=== PATIENT | female | born 1945 | race Caucasian/White ===

== ENCOUNTER 2016-02-13 07:56 | Inpatient (IN) | payer OTHER ==
[2016-02-13] VITALS (16 sets, daily range): BP systolic 107–156; BP diastolic 65–86; PULSE 97–116; TEMP 36.4–37; O2SAT 94–99; Ht 162.6 cm; Wt 66.0 kg
[~2016-02-13] VITALS: Ht 162.6 cm; Wt 66.0 kg
[~2016-02-13 07:56] MED LIST: ADVIN25/60 INH; ALBUAER19 INH; ASPI81TA28 PO; ATOR10TA88 PO; CALC600T9 PO; GLC500 PO; GLUCTAB7 PO; MONT1TAB3 PO; NAPR375T3 PO; OMEP40CA41 PO
[2016-02-13 08:46] LABS: BASO % 0.3 %; BASO ABS # 0.03 K/uL (0-0.2); COMPLETE YES; EOS % 0.9 %; HEMATOCRIT 42.7 % (37-47); IG% 0.5 %; LYMPH % 19.8 %; LYMPH ABS # 2.08 K/uL (1.2-3.4); MEAN CELL VOLUME 87.9 fL (80-100); MEAN CORPUSCULAR HEMOGLOBIN 29.2 pg (25-34); MEAN CORPUSCULAR HGB CONC 33.3 g/dl (32-36); MEAN PLATELET VOLUME 11.8 fL (7.4-10.4); MONO % 5.1 %; NEUT % 73.4 %; PLATELET COUNT 191 K/uL (130-400); RED BLOOD COUNT 4.86 M/uL (4.2-5.4); WHITE BLOOD COUNT 10.53 K/uL (4.8-10.8)
[2016-02-13 08:55] LABS: BUN/CREATININE RATIO 12.4 (10-20); CALCIUM 9.5 mg/dl (8.5-10.1); CREATININE 0.86 mg/dl (0.60-1.20); POTASSIUM 4.1 mmol/L (3.5-5.1)
[2016-02-13 08:58] LABS: INR 0.9 (0.9-1.1); PARTIAL THROMBOPLASTIN RATIO 0.9; PROTHROMBIN TIME (PATIENT) 9.7 SECONDS (9.0-12.0)
--- NOTE | 2016-02-13 08:59 | DIAGNOSTIC IMAGING REPORT ---
CHEST 2 VIEWS ROUTINE HISTORY: Left-sided chest pain. COMPARISON: None. FINDINGS: The heart is normal in size. No pleural effusions. No pneumothorax. No focal lung consolidations to suggest pneumonia. No evidence for pulmonary edema. A 7 mm nodular density within the left lower lobe is consistent with a nipple shadow. Small linear density within the right lung apex is likely due to the overlapping ribs. No rib fractures. The lungs are mildly hyperexpanded. Prior cholecystectomy. IMPRESSION: 1. No acute process within the chest. 2. The lungs are mildly hyperexpanded. Electronically signed by: Roshan Anthony M.D. 02/13/2016 8:57 AM Dictated Date/Time: 02/13/2016 8:54 AM
[2016-02-13] MEDS ORDERED: MULT-506 PO (09:00)
[2016-02-13] MEDS ORDERED: MISCTAB78 PO (09:00)
[2016-02-13 09:06] LABS: CKMB/CK RATIO 1.7 (0-3.0)
--- NOTE | 2016-02-13 09:32 | EMERGENCY ROOM VISIT NOTE ---
ED Visit Note First contact with patient: 08:05 70-year-old female with chest pain was fully evaluated by Janusz Reyes PA-C. Please see his note. I also independently evaluated the patient. The patient is elevation of her troponin. The patient will require further evaluation in the hospital. The hospitalist was contacted. The patient has already received aspirin and nitroglycerin.
[2016-02-13] MEDS ORDERED: NITROGLYCERIN OINT 2% 1GM PACKET EXT ONE (10:15)
[2016-02-13] MEDS ORDERED: GLUCOSE 40% GEL 15 GM TUBE PO PRN (11:00)
[2016-02-13] MEDS ORDERED: ACETAMINOPHEN 325 MG TAB PO PRN (11:00)
[2016-02-13] MEDS ORDERED: GLUCAGON FOR INJ 1 MG VIAL SQ PRN (11:00)
[2016-02-13] MEDS ORDERED: DEXTROSE 50% 50 ML SYR IV PRN (11:00)
[2016-02-13] MEDS ORDERED: NITROGLYCERIN 0.4 MG SL PER TAB CHARGE SL PRN (11:00)
[2016-02-13] MEDS ORDERED: ONDANSETRON INJ 2 MG/ML 2 ML VIAL IV PRN ×2 (11:00→15:45)
[2016-02-13] MEDS ORDERED: ALBUTEROL HFA 8 GM INHALER INH PRN (11:00)
[2016-02-13] MEDS ORDERED: GLUCOSE 10 TABS/TUBE PO PRN (11:00)
[2016-02-13] MEDS ORDERED: CALC600T37 PO (11:06)
[2016-02-13] MEDS ORDERED: CHOL1000 PO (11:06)
--- NOTE | 2016-02-13 11:26 | History and Physical ---
History & Physical Date & Time of Service: Feb 13, 2016 at 11:07 Chief Complaint: Chest Pain Primary Care Physician: Anthony Griffiths M.D.(JORJE) History of Present Illness Source: patient This is a 70 y/o female with PMHx of moderate COPD, well-controlled DM 2, Dyslipidemia and other problems as outlined below who presents to the ED c/o chest pain that began early this morning. Pt reports that she woke up around 0500 with chest pain that she describes as "heavy" 5/10 L sided chest pain that does not radiate anywhere. Pain was aggravated with deep inspiration but she did not notice any change with exertion. Sxs were preceded by a few days of fatigue and sinus congestion. Pt has FmHx of CAD. She is a former smoker and has no prior history of cardiac problems. Pt denies fever/chills, diaphoresis, palpitations, SOB, wheezing, abd pain, N/V, bowel or bladder issues, LE edema , calf pain, lightheadedness/dizziness. In the ED, pt is tachy on arrival but saturating well on room air. Trop 0.255. EKG: sinus tachy with no acute ischemic changes. CXR is negative. Pt received nitro paste in ED with some relief of sxs however she is still complaining of 3/10 chest pain. Pt will be admitted for further evaluation and treatment. Past Medical/Surgical History Medical Problems: (1) Asthma Status: Chronic (2) COPD, moderate Status: Chronic (3) Diabetes mellitus type II, controlled Status: Chronic (4) Dyslipidemia Status: Chronic (5) History of breast cancer Permanent Comment: L lumpectomy, neg nodes, +radiation, +tamoxifen; 1998 Status: Resolved Surgical Problems: (1) History of cholecystectomy Status: Resolved (2) History of lumpectomy of left breast Status: Resolved (3) History of meniscectomy of left knee Status: Resolved Family History Diabetes mellitus FH: cancer FH: heart disease FHx: gallbladder disease Social History Smoking Status: Former Smoker (20 pack year history; quit 1992) Alcohol Use: none Drug Use: none Occupational Status: retired (nurse) Allergies Coded Allergies: Oxycodone (Unverified Adverse Reaction, Unknown, nausea, 02/13/16) Home Medications Scheduled Amoxicillin & Pot Clavulanate (Amoxicillin/Clavulanate P), 875 MG PO BIDM Aspirin (Aspirin Ec), 81 MG PO QPM Atorvastatin (Atorvastatin Calcium), 40 MG PO QPM Calcium (Calcium), 1,200 MG PO DAILY Carvedilol (Carvedilol), 6.25 MG PO BID Cholecalciferol (Vitamin D3), 2,000 UNITS PO DAILY Clopidogrel Bisulfate (Clopidogrel), 75 MG PO QAM Fluticasone Prop/Salmeterol (Advair Diskus 250/50 60 Dose), 1 PUFF INH DAILY Lisinopril (Lisinopril), 5 MG PO QAM Metformin HCl (Metformin HCl), 500 MG PO BID Misc Natural Products (Osteo Bi-Flex Advanced Do), 1 TAB PO DAILY Montelukast Sodium (Singulair), 10 MG PO DAILY Multivitamin (Multivitamin), 1 TAB PO DAILY Omeprazole (Prilosec), 40 MG PO DAILY Scheduled PRN Albuterol Inhaler (Ventolin Inhaler), 2 PUFFS INH QID PRN for Wheezing Nitroglycerin (Nitrostat), 0.4 MG SL UD PRN for Chest Pain Review of Systems Constitutional: + fatigue, No chills, No fever, No sweats, No weakness Eyes: No worsening of vision ENT: + nasal symptoms (congestion), No hearing loss Respiratory: No cough, No shortness of breath, No sputum, No wheezing Cardiovascular: + chest pain, No claudication, No edema, No palpitations Abdomen: No GI bleeding, No constipation, No diarrhea, No nausea, No pain, No vomiting Musculoskeletal: No calf pain, No swelling Genitourinary - Female: No dysuria Neurologic: No weakness Psychiatric: No depression symptoms Endocrine: + fatigue Hematologic / Lymphatic: No abnormal bleeding/bruising Integumentary: No new/changing skin lesions Physical Exam Vital Signs Date Time Temp Pulse Resp B/P Pulse Ox O2 Delivery O2 Flow Rate FiO2 02/13/16 10:15 97 Room Air 02/13/16 09:18 112 141/89 97 Room Air 02/13/16 08:02 123 02/13/16 08:02 36.5 120 21 157/88 96 Room Air 02/13/16 08:02 96 Room Air 02/13/16 08:02 96 Room Air General Appearance: WD/WN, no apparent distress Head: normocephalic, atraumatic Eyes: normal inspection ENT: hearing grossly normal Neck: supple Respiratory/Chest: chest non-tender, lungs clear, normal breath sounds, no respiratory distress Cardiovascular: regular rate, rhythm, no edema, no murmur Abdomen/GI: normal bowel sounds, non tender, soft Back: normal inspection Extremities/Musculoskelatal: normal inspection, no calf tenderness, no pedal edema Neurologic/Psych: alert, normal mood/affect, oriented x 3 Skin: normal color, warm/dry Diagnostics Laboratory Results Results Past 24 Hours Test 02/13/16 07:40 Range/Units White Blood Count 10.53 4.8-10.8 K/uL Red Blood Count 4.86 4.2-5.4 M/uL Hemoglobin 14.2 12.0-16.0 g/dL Hematocrit 42.7 37-47 % Mean Corpuscular Volume 87.9 80-100 fL Mean Corpuscular Hemoglobin 29.2 25-34 pg Mean Corpuscular Hemoglobin Concent 33.3 32-36 g/dl Platelet Count 191 130-400 K/uL Mean Platelet Volume 11.8 7.4-10.4 fL Neutrophils (%) (Auto) 73.4 % Lymphocytes (%) (Auto) 19.8 % Monocytes (%) (Auto) 5.1 % Eosinophils (%) (Auto) 0.9 % Basophils (%) (Auto) 0.3 % Neutrophils # (Auto) 7.73 1.4-6.5 K/uL Lymphocytes # (Auto) 2.08 1.2-3.4 K/uL Monocytes # (Auto) 0.54 0.11-0.59 K/uL Eosinophils # (Auto) 0.10 0-0.5 K/uL Basophils # (Auto) 0.03 0-0.2 K/uL RDW Standard Deviation 40.9 36.4-46.3 fL RDW Coefficient of Variation 12.8 11.5-14.5 % Immature Granulocyte % (Auto) 0.5 % Immature Granulocyte # (Auto) 0.05 0.00-0.02 K/uL Prothrombin Time 9.7 9.0-12.0 SECONDS Prothromb Time International Ratio 0.9 0.9-1.1 Activated Partial Thromboplast Time 23.7 21.0-31.0 SECONDS Partial Thromboplastin Ratio 0.9 D-Dimer 440 0-500 ug/L FEU Sodium Level 143 136-145 mmol/L Potassium Level 4.1 3.5-5.1 mmol/L Chloride Level 104 98-107 mmol/L Carbon Dioxide Level 29 21-32 mmol/L Anion Gap 10.0 3-11 mmol/L Blood Urea Nitrogen 11 7-18 mg/dl Creatinine 0.86 0.60-1.20 mg/dl Est Creatinine Clear Calc Drug Dose 55.4 ml/min Estimated GFR () 78.8 Estimated GFR (Non- 68.0 BUN/Creatinine Ratio 12.4 10-20 Random Glucose 159 70-99 mg/dl Calcium Level 9.5 8.5-10.1 mg/dl Total Creatine Kinase 87 26-192 U/L Creatine Kinase MB 1.5 0.5-3.6 ng/ml Creatine Kinase MB Ratio 1.7 0-3.0 Troponin I 0.255 0-0.045 ng/ml Thyroid Stimulating Hormone (TSH) 1.690 0.300-4.500 uIu/ml Chemistry Specimen Hemolysis Diagnostic Radiology CXR IMPRESSION: 1. No acute process within the chest. 2. The lungs are mildly hyperexpanded. EKG EKG: sinus tachy at 110 bpm with no acute ischemic changes noted; no change when compared to EKG from 05/18/13 Impression Assessment and Plan CHEST PAIN R/O ACS VS. PE pt presents with heavy L sided chest pain that is worse with inspiration -admit observation status to telemetry -RFs include + FmHx, prior tobacco use, DM 2 and dyslipidemia -pt is tachy on arrival; saturating well on room air -EKG sinus tach with no evidence of acute ischemia; repeat EKG PRN chest pain and in AM -Initial troponin 0.255; continue to monitor with serial cardiac enzymes q6h -d-dimer negative to r/o PE -obtain echo to r/o cardiac wall motion abnormalities -cont ASA and statin -consult cardiology, Dr. Bocanegra-pending input -pt still c/o 3/10 chest heaviness -continue to monitor WELL-CONTROLLED DM 2 -recent A1C 6.1 -hold metformin -start ISS -monitor BSG AC HS MODERATE COPD -no evidence of acute exacerbation -cont inhalers H/O BREAST CA -stable -s/p L breast lumpectomy, chemo and radiation DYSLIPIDEMIA -statin DVT PROPHYLAXIS -subq Lovenox CODE STATUS -FULL CODE per discussion with patient upon admission DISPO Observation status until further workup is complete. Pt seen in collaboration with Dr. Ma. Please see his addendum for further details. Thanks! ATTENDING ADDENDUM care coordinated with YESSENIA Wagner please refer to her notes for full details, I agree with her notes patient seen and examined, records reviewed by myself as well on exam, patient seen sitting up in bed, comfortable states left sided chest discomfort is almost resolved no dyspnea, palpitations, dizziness, weakness, nausea no other symptoms VS noted and reviewed oriented x 3, not in distress, speaks in sentences with no effort nor accessory muscle use tachycardic, regular rhythm, no murmurs clear breath sounds bilaterally non distended, soft, nontender no bipedal edema, erythema, warmth no neuro deficits Hg 14.2 Crea 0.255 EKG: sinus tach, no signs of acute infarct or ischemia ASSESSMENT/PLAN> CHEST PAIN R/O ACS serial cardiac markers echo on Aspirin, Statin possible Stress Test, Cardiology Consulted SINUS TACHYCARDIA per patient, her baseline HR is 90s had 1 dose of pseudafed this morning TSH normal monitor MILD HYPERTENSION no previous history monitor while inpatient may be secondary to pseudafed as well other diagnoses and plan of care as per YESSENIA Wagner notes Abdi Ma MD Advanced Directives Existing Advance Directive: Yes Existing Living Will: Yes Existing Power of Census Taker: Yes VTE Prophylaxis VTE Risk Assessment Done? Y/N: Yes Risk Level: Moderate
[2016-02-13] MEDS: SODIUM CHLORIDE 0.9% 1000ML 1,000 ML IV SCH ×2 (13:27→23:00)
[2016-02-13] MEDS ORDERED: METOPROLOL TARTRATE 1 MG/ML VIAL ONE (13:41)
[2016-02-13] MEDS ORDERED: HEPARIN SQ 5000 UNIT HEART ALERT CARP ONE (14:14)
[2016-02-13] MEDS ORDERED: NiCARDipine HCL INJ 2.5 MG/ML 10 ML AMP ONE (14:15)
[2016-02-13] MEDS ORDERED: FENTANYL CITRATE INJ 50 MCG/1 ML 2 ML VIAL ONE (14:15)
[2016-02-13] MEDS ORDERED: HEPARIN SOD (PORCINE) 1000 UNIT/ML 10 ML VIAL ONE ×2 (14:15→15:34)
--- NOTE | 2016-02-13 14:15 | Cardiology Consultation ---
Cardiology Consultation Date of Consultation: Feb 13, 2016 History of Present Illness Zena Johnston is a 70 year old female seen in cardiology consultation per the request of Rekha Wagner PA-C and Dr Ma for the evaluaiton of chest pressure. The patient describes that she was in her normal state of health. She was up early this morning and at 5:30 she noted onset of left-sided chest pressure. She also noted some sinus congestion and she took a dose of Sudafed. Her symptoms of chest pressure persisted and therefore she presented to the emergency department. Her primary care provider is Dr. Aye Denis. She has previously established relationship with cardiology. Her initial EKG performed 02/13/2016 at 7:59 AM revealed sinus tachycardia 110 bpm with no significant ST changes. Cardiac enzymes were performed at 7:40 AM revealing a normal CPK of 87 units per liter, and a elevation in the troponin I of 0.255 MG per mL. She was treated with IV fluids, and she received 1 inch of nitroglycerin paste. During my assessment of the patient in room 2211 she complained of residual 2/10 in intensity left-sided chest pressure. The bedside echocardiogram was performed on a stat basis and revealed hypokinesis in the left anterior descending coronary artery territory including the mid and apical anterior septum, apical wall, apex, and apical inferior wall with mild to moderate LV systolic function. The patient denies ever having been diagnosed with a cardiac problem before. 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 She notes having been diagnosed with diabetes 3 years ago. Her most recent hemoglobin A1c performed on 02/09/2016 was 6.1%. She is on atorvastatin 10 mg by mouth daily and her most recent LDL cholesterol performed on was 97 mg/ dL. History PAST MEDICAL HISTORY: 1. Type 2 diabetes mellitus diagnosed 3 years ago 2. Breast carcinoma diagnosed in 1998 for which he underwent left-sided lumpectomy, radiation therapy and tamoxifen 3. Asthma 4. Dyslipidemia 5. Gastroesophageal reflux disease 6. Osteoarthritis 7. Known left knee meniscus tear been treated conservatively 8. Cataracts, anticipates cataract surgery within the next year PAST SURGICAL HISTORY: 1. Arthroscopic knee surgery 2 2. EGD 2009 3. Breast lumpectomy and lymph node dissection 1998 4. Laparoscopic cholecystectomy 5. Right knee replacement FAMILY HISTORY: Mother at age 90 having had coronary artery bypass grafting in her late 70s or early 80s. Her mother also had atrial fibrillation. Father due to consultations of dementia She has a sister with history of hypertension SOCIAL HISTORY: She is a former cigarette smoker having ceased smoking in 1992 She is retired nurse Review Of Systems See above for pertinent positives & negatives. A total of 10 systems reviewed and were otherwise negative. Allergies Coded Allergies: Oxycodone (Unverified Adverse Reaction, Unknown, nausea, 02/13/16) Medications Reported Home Medications Medications Dose Route/Sig Max Daily Dose Days Date Category Calcium 600 Mg Tab 1,200 Mg PO DAILY 02/13/16 Reported Vitamin D3 (Cholecalciferol) 1,000 Unit Tab 2,000 Units PO DAILY 30 02/13/16 Reported Osteo Bi-Flex Advanced Do (Misc Natural Products) 1 Tab Tab 1 Tab PO DAILY 02/13/16 Reported Multivitamin (Multivitamins) Tab 1 Tab PO DAILY 02/13/16 Reported Metformin HCl 500 Mg Tab 500 Mg PO BID 08/10/14 Reported Naproxen 375 Mg Tab 375 Mg PO BID 08/10/14 Reported Advair Diskus 250/50 60 Dose (Fluticasone Prop/Salmeterol) 1 Ea Aerp 1 Puff INH DAILY 08/10/14 Reported Ventolin Inhaler (Albuterol) Aers 2 Puffs INH QID PRN 08/10/14 Reported Lipitor (Atorvastatin Calcium) 10 Mg Tab 10 Mg PO QPM 08/10/14 Reported Aspirin Ec (Aspirin) 81 Mg Tab 81 Mg PO QPM 08/10/14 Reported Prilosec (Omeprazole) 40 Mg Cap 40 Mg PO DAILY 08/10/14 Reported Singulair (Montelukast Sodium) 10 Mg Tab 10 Mg PO DAILY 08/10/14 Reported Physical Exam Vital Signs (Last 8hrs): Last 8 Hrs Date Time Temp Pulse Resp B/P Pulse Ox O2 Delivery O2 Flow Rate FiO2 02/13/16 14:05 113 20 136/85 94 Room Air 02/13/16 13:55 105 131/85 02/13/16 13:50 112 130/80 02/13/16 13:40 116 132/79 02/13/16 13:35 123 134/81 02/13/16 12:30 37.0 115 20 147/84 96 Room Air 02/13/16 12:09 113 18 136/80 95 02/13/16 11:58 118/75 02/13/16 11:33 111 13 95 02/13/16 11:28 136/80 02/13/16 11:26 113 18 95 02/13/16 10:59 160/81 02/13/16 10:56 114 22 96 02/13/16 10:28 156/91 02/13/16 10:26 112 23 97 02/13/16 10:15 97 Room Air 02/13/16 09:58 145/85 02/13/16 09:56 109 23 96 02/13/16 09:28 145/102 02/13/16 09:26 104 18 96 02/13/16 09:18 112 141/89 97 Room Air 02/13/16 09:12 141/89 02/13/16 08:26 108 19 95 02/13/16 08:02 123 02/13/16 08:02 36.5 120 21 157/88 96 Room Air 02/13/16 08:02 96 Room Air 02/13/16 08:02 96 Room Air 02/13/16 07:58 157/88 General Appearance: Alert and Oriented x3. NAD. Head: Normocephalic Atraumatic. Eyes: PERRLA, EOMI, conjunctiva and sclera clear Neck: Supple. No carotid bruits noted. No JVD. No HJD. Respiratory: Breath sounds clear to auscultation bilaterally. No w/r/r. Cardiovascular: Reg rate and rhythm. S1 and S2 noted. No murmurs, rubs, gallops. PMI non displace. Abdomen: Normal bowel sounds, soft nontender. no abdominal bruits. Extremities: No edema, no clubbing or cyanosis. distal pulses 2/4 bilaterally. Neuro: No focal deficits. Psychiatric: Normal affect. Data Last Resulted 02/13/16 07:40 Red Blood Count 4.86, Mean Corpuscular Volume 87.9, Mean Corpuscular Hemoglobin 29.2, Mean Corpuscular Hemoglobin Concent 33.3, Mean Platelet Volume 11.8, Neutrophils (%) (Auto) 73.4, Lymphocytes (%) (Auto) 19.8, Monocytes (%) (Auto) 5.1, Eosinophils (%) (Auto) 0.9, Basophils (%) (Auto) 0.3, Neutrophils # (Auto) 7.73, Lymphocytes # (Auto) 2.08, Monocytes # (Auto) 0.54, Eosinophils # (Auto) 0.10, Basophils # (Auto) 0.03 Last Resulted 02/13/16 07:40 Past 24 Hours Test 02/13/16 07:40 02/13/16 13:28 02/13/16 13:30 Range/Units Creatine Kinase MB 1.5 0.5-3.6 ng/ml Creatine Kinase MB Ratio 1.7 0-3.0 Prothromb Time International Ratio 0.9 0.9-1.1 Prothrombin Time 9.7 9.0-12.0 SECONDS Total Creatine Kinase 87 26-192 U/L Troponin I 0.255 *H 0-0.045 ng/ml Imaging: Chest x-ray reveals no acute cardiac pulmonary pathology EKG: Repeat EKG performed 02/13/2016 at 1325 hrs. and reviewed independently reveals sinus tachycardia 116 bpm, with no significant ST changes. Telemetry reviewed: Mild sinus tachycardia and no other arrhythmia Assessment & Plan Impression: 70-year-old female 1. Non-ST segment elevation acute coronary syndrome, with persistent plaint chest pressure, normal EKG, mild troponin I elevation, and LAD territory wall motion abnormality on echocardiogram that is presumed to be acute. 2. History of type 2 diabetes mellitus 3. History of dyslipidemia 4. Family history of ischemic heart disease 5. History of ankle arthritis for which she takes daily naproxen therapy Discussion/recommendations: After the echocardiogram findings revealed concerning wall motion abnormality, 5 mg of IV metoprolol were administered due to continued chest discomfort and tachycardia. The case was discussed with Dr Pedraza who is learning consultant for interventional cardiology. Although there is no ST elevation on EKG, I recommended proceeding with coronary angiography today given the nature of her symptoms and the echocardiogram findings without delay. Since it is a Sunday, the Heart Alert Protocol was initiated. Further recommendations will be forthcoming after the cardiac catheterization is complete. Her formal echocardiogram report will be provided separately from the consultation. Taina Muñoz DO
[2016-02-13] MEDS ORDERED: MIDAZOLAM HCL 1 MG/ML 2ML VIAL ONE ×2 (14:16→15:19)
[2016-02-13] MEDS ORDERED: NITROGLYCERIN/D5W 100MCG/ML 20ML SYR ONE (14:16)
[2016-02-13] MEDS ORDERED: HEPARIN SOD 5000 UNIT/0.5 ML CARP IV ONE (14:19)
--- NOTE | 2016-02-13 14:20 | Procedure Note ---
Pre-Mod Sedation Assessment General Date of Moderate Sedation: Feb 13, 2016. Vital Signs: Vital Signs Past 12 Hours Date Time Temp Pulse Resp B/P Pulse Ox O2 Delivery O2 Flow Rate FiO2 02/13/16 14:05 113 20 136/85 94 Room Air 02/13/16 13:55 105 131/85 02/13/16 13:50 112 130/80 02/13/16 13:40 116 132/79 02/13/16 13:35 123 134/81 02/13/16 12:30 37.0 115 20 147/84 96 Room Air 02/13/16 12:09 113 18 136/80 95 02/13/16 11:58 118/75 02/13/16 11:33 111 13 95 02/13/16 11:28 136/80 02/13/16 11:26 113 18 95 02/13/16 10:59 160/81 02/13/16 10:56 114 22 96 02/13/16 10:28 156/91 02/13/16 10:26 112 23 97 02/13/16 10:15 97 Room Air 02/13/16 09:58 145/85 02/13/16 09:56 109 23 96 02/13/16 09:28 145/102 02/13/16 09:26 104 18 96 02/13/16 09:18 112 141/89 97 Room Air 02/13/16 09:12 141/89 02/13/16 08:26 108 19 95 02/13/16 08:02 123 02/13/16 08:02 36.5 120 21 157/88 96 Room Air 02/13/16 08:02 96 Room Air 02/13/16 08:02 96 Room Air 02/13/16 07:58 157/88 Review Cardiovascular: no edema, no gallop, no JVD, no murmur, normal peripheral pulses, + tachycardia Abdomen: normal bowel sounds, non tender, soft, no organomegaly, no pulsatile mass Lungs: chest non-tender, lungs clear, normal breath sounds, no respiratory distress, no accessory muscle use Pre-Sedation Airway Assessment Oral Cavity: Dentures Able to Visualize Vocal Cords: No Short Thick Neck: No Hx of Sleep Apnea: No Smoking Status: Former Smoker (20 pack year history; quit 1992) Procedure Planning Contraindications-for Mod Sed: None Yes Notes The planned sedation has been discussed with the patient and consent obtained. I have identified the patient, determined the appropriateness of sedation and have assessed the patient immediately prior to the procedure. All medicine(s) and interventions are by my order.
[2016-02-13] MEDS ORDERED: IV FLUIDS COMPLETED PRN (15:00)
[2016-02-13] MEDS ORDERED: CLOPIDOGREL BISULFATE 300 MG TAB PO ONE (15:09)
--- NOTE | 2016-02-13 15:22 | ECHOCARDIOGRAM REPORT ---
*NOTICE TO RECEIVING CONSTITUTION PARTY AGENCY This information is strictly Confidential and protected under [place] law. [place] law prohibits you from making any further disclosure of this information unless further disclosure is expressly permitted by the written consent of the person to whom it pertains or is authorized by law. A general authorization for the release of medical or other information is not sufficient for this purpose. Hospital accepts no responsibility if the information is made available to any other person, INCLUDING THE PATIENT. Interpretation Summary * Name: CESIA CANTOR Study Date: 02/13/2016 01:14 PM BP: 141/89 mmHg * Patient Location: [facility] HR: 122 * : 1945 (M/d/yyyy) Gender: Female Height: 64 in * Age: 70 yrs Ethnicity: CA Weight: 145 lb * Ordering Physician: Rekha Wagner * Referring Physician: Self, Referred * Performed By: Ruben Richardson RDCS * * Reason For Study: Chets pain * BSA: 1.7 m2 * -- Conclusions -- * There is normal left ventricular wall thickness. * There is a large sized apical, septal, anteroseptal, and anterior wall motion abnormality with hypokinesis of the segments. * Left ventricular systolic function is mildly reduced. * The calculated left ventricular ejection fraction =43% (Baez's biplane method) * There is moderate mitral annular calcification. * Grade I diastolic dysfunction, (abnormal relaxation pattern). * There is no prior study available for comparison. Procedure Details * A complete two-dimensional transthoracic echocardiogram was performed (2D, M-mode, Doppler and color flow Doppler). * The study was technically adequate. Left Ventricle * The left ventricle is normal in size. * There is normal left ventricular wall thickness. * Left ventricular systolic function is mildly reduced. * The calculated left ventricualar ejection fraction =43% (Baez's biplane method) * There is a large sized apical, septal, anteroseptal, and anterior wall motion abnormality with hypokinesis of the segments. Right Ventricle * The right ventricle is normal size. * The right ventricle is hyperdynamic. Atria * The left atrial size is normal. * Right atrial size is normal. * There is no evidence of atrial septal defect, but resolution does not allow assessment for a patent foramen ovale. Mitral Valve * There is moderate mitral annular calcification. * There is no mitral valve stenosis. * Significant mitral regurgitation is absent. Tricuspid Valve * The tricuspid valve is normal. * There is no tricuspid stenosis. * Significant tricuspid regurgitation is absent. Aortic Valve * The aortic valve is trileaflet. * Aortic stenosis is absent. * There is no significant aortic regurgitation. Pulmonic Valve * The pulmonary valve is not well seen, but the Doppler examination is normal without significant regurgitation or stenosis. Great Vessels * The aortic root and proximal ascending aorta are normal sized. Pericardium/Pleural * There is a trivial anterior loculated pericardial effusion. Great Vessels * Normal inferior vena cava diameter and respiratory variation suggests normal central venous pressure. * Normal inferior vena cava size and collapsability with sniff indicates a normal right atrial pressure of 3 mmHg Left Ventricular Diastolic Function * Grade I diastolic dysfunction, (abnormal relaxation pattern). MMode 2D Measurements and Calculations IVSd 0.85 cm IVSs 1.3 cm LVIDd 4.5 cm LVIDs 2.4 cm LVPWd 0.85 cm LVPWs 1.3 cm IVS/LVPW 1.0 FS 46.0 % EDV(Teich) 92.4 ml ESV(Teich) 20.8 ml EF(Teich) 77.5 % EDV(cubed) 91.0 ml ESV(cubed) 14.3 ml EF(cubed) 84.3 % % IVS thick 58.7 % % LVPW thick 52.8 % LV mass(C)d 123.2 grams LV mass(C)dI 72.2 grams/m\S\2 LV mass(C)s 97.7 grams LV mass(C)sI 57.2 grams/m\S\2 SV(Teich) 71.6 ml SI(Teich) 42.0 ml/m\S\2 SV(cubed) 76.7 ml SI(cubed) 45.0 ml/m\S\2 Ao root diam 2.4 cm Ao root area 4.6 cm\S\2 ACS 1.6 cm LA dimension 3.7 cm asc Aorta Diam 2.5 cm LA/Ao 1.5 LVOT diam 1.8 cm LVOT area 2.6 cm\S\2 LVAd ap4 19.6 cm\S\2 LVLd ap4 6.9 cm EDV(MOD-sp4) 46.0 ml LVAs ap4 14.8 cm\S\2 LVLs ap4 6.2 cm ESV(MOD-sp4) 28.0 ml EF(MOD-sp4) 39.1 % LVAd ap2 19.6 cm\S\2 LVLd ap2 6.9 cm EDV(MOD-sp2) 46.0 ml LVAs ap2 13.4 cm\S\2 LVLs ap2 6.0 cm ESV(MOD-sp2) 24.0 ml EF(MOD-sp2) 47.8 % SV(MOD-sp4) 18.0 ml SI(MOD-sp4) 10.6 ml/m\S\2 SV(MOD-sp2) 22.0 ml SI(MOD-sp2) 12.9 ml/m\S\2 Doppler Measurements and Calculations MV E max karissa 123.4 cm/sec MV A max karissa 160.4 cm/sec MV E/A 0.77 MV dec time 0.11 sec Ao V2 max 120.8 cm/sec Ao max PG 5.8 mmHg Ao max PG (full) 2.0 mmHg GAURAV(V,A) 2.1 cm\S\2 GAURAV(V,D) 2.1 cm\S\2 LV V1 max PG 3.8 mmHg LV V1 max 97.9 cm/sec PA V2 max 146.9 cm/sec PA max PG 8.6 mmHg TR max karissa 263.3 cm/sec
--- NOTE | 2016-02-13 15:35 | Procedure Note ---
Post-Mod Sedation Assessment General Date of Moderate Sedation Feb 13, 2016. Vital Signs: Vital Signs Past 12 Hours Date Time Temp Pulse Resp B/P Pulse Ox O2 Delivery O2 Flow Rate FiO2 02/13/16 14:15 36.7 110 20 156/81 99 Room Air 02/13/16 14:05 113 20 136/85 94 Room Air 02/13/16 13:55 105 131/85 02/13/16 13:50 112 130/80 02/13/16 13:40 116 132/79 02/13/16 13:35 123 134/81 02/13/16 12:30 37.0 115 20 147/84 96 Room Air 02/13/16 12:09 113 18 136/80 95 02/13/16 11:58 118/75 02/13/16 11:33 111 13 95 02/13/16 11:28 136/80 02/13/16 11:26 113 18 95 02/13/16 10:59 160/81 02/13/16 10:56 114 22 96 02/13/16 10:28 156/91 02/13/16 10:26 112 23 97 02/13/16 10:15 97 Room Air 02/13/16 09:58 145/85 02/13/16 09:56 109 23 96 02/13/16 09:28 145/102 02/13/16 09:26 104 18 96 02/13/16 09:18 112 141/89 97 Room Air 02/13/16 09:12 141/89 02/13/16 08:26 108 19 95 02/13/16 08:02 123 02/13/16 08:02 36.5 120 21 157/88 96 Room Air 02/13/16 08:02 96 Room Air 02/13/16 08:02 96 Room Air 02/13/16 07:58 157/88 Review - Discharge Criteria Vital Signs Stable: Yes Alert/Oriented/Conversant: Yes Returned to Baseline Mental St: Yes Nausea Absent/Minimal: Yes Pain/Discomfort/Absent/Minimal: Yes Normal/Baseline Respirations: Yes Active Bleeding?: No Pt Received D/C Instructions: Yes Prescriptions Given: None Specific Proced. D/C Criteria Distal Pulses Present (Cardiac: Yes Groin site assessed-Card Cath: N/A Voided Prior To Discharge: N/A Discharged Patients Adult Escort/Transportation: N/A
[2016-02-13] MEDS ORDERED: ATROPINE SULFATE 0.1 MG/ML 5ML SYR IV PRN (15:45)
--- NOTE | 2016-02-13 15:46 | Cardiac Catheterization ---
Procedure Note Procedure Date Feb 13, 2016. Pre-Procedure Diagnosis Non STEMI AUC Score 8 Post-Procedure Diagnosis Severe CAD, Successful PCI Procedure(s) Performed Coronary Angiography, Left Heart Cath, Drug Eluting Stent, Radial Artery Angiography Php Programmer Dr. Pedraza Client Reporting Associate(s) jessica Estimated Blood Loss 50 Medication(s) Fentanyl, Heparin, Nicardipine, Nitroglycerin, Versed, Lidocaine 1% Summary of Findings Asked to perform cath on unstable angina, LAD wall motion abnormality. Right radial access. Difficulty advancing catheter - radial artery angiogram displays a radial loop. Nitro/nicardipine given for spasm. BMW wire navigated around the loop. Using a 2mm balloon in a guide technique, able to advance the guide past the area of concern. EBU 3.5 guide was very deep seated. LM: normal. LAD: mid vessel 90% stenosis. LCx: normal. RCA: normal. dominant RCA. BMW wire. predilated lesion with a 2mm balloon. 2.68l21pa Resolute GAVIN mid LAD. post-dilated with stent balloon. Residual stenosis after the stent past the large diagonal vessel. Nitro/ nicardipine given to confirm not spasm. An additional 2.91m21fm Resolute GAVIN placed, overlapping with the first stent, over the occlusion. Post-dilated the overlap. Great result. Jailed diagonal flow not affected. Visualization of the radial/brachial artery post procedure to confirm no bleed. No bleed appreciated. Radial TR band applied. asa, plavix, bb, odin, statin. cardiac rehab consult placed. Hemodynamics Rest Ao: 129/74/101 Final Ao: 125/61/86 LV: 102/20/18 Recommendations PCI without planned CABG Specimens None Radiation Exposure (mGy) 1177 Contrast (mls) 135 Fluids (cc crystalloids) 82 Drains none Anesthesia fent versed lido Procedural Complication(s) None Disposition PCU ACC Data Cardiac Status Clinical evaluation leading to the procedure CAD Presntation: Non STEMI Anginal Classification: CCS II Heart Failure: Yes, NYHA Class: CCS I Cardiogenic Shock w/in 24Hrs: No Cardiac Arrest w/in 24Hrs: No Imaging studies past 6 months: Yes Stress studies past 6 months: No Standard Exercise Stress Test: No Stress Echocardiogram: No Stress Testing w/SPECT MPI: No Cardiac CTA: No Coronary Anatomy Dominant: Right Left Main (% Stenosis): Normal LAD (% Stenosis): Mid (90) D1 (% Stenosis): Normal Circumflex (% Stenosis): Normal RCA (% Stenosis): Normal Left Ventricular Angiography EF (%): not done Diagnostic Physician's Name: Arvind Pedraza DO Status: Urgent Closure Device Percutaneous Entry Location: Radial Closure Device: Radial Band Recommendations: PCI without planned CABG PCI Indication: PCI for high risk Non-STEMI Lesion Segment Name: LAD Culprit Artery: Yes Stenosis Prior to Rx (%): 90 Chronic Total Occlusion: No IVUS: No FFR: No Pre-Procedure BRUNO Flow: 3 Previously Treated Lesion: No Lesion Complexity: Non-High/Non-C Lesion Length (mm): 15 Thrombus Present: No Bifurcation Lesion: No Guidewire Across Lesion: Yes Guidewire: Stenosis Post-Procedure (%): 0 Post-Procedure BRUNO Flow: 3 Device(s) Deployed: Yes Type of Device(s): Resolute 2.25x18 and 2.25x12 overlapping GAVIN in mid LAD, jailing a diagonal. Intraprocedure Events Significant Dissection: No Perforation: No
[2016-02-13] MEDS: INSULIN ASPART 100 UNITS/ML 3 ML PEN SC SCH ×2 (16:15→21:00)
[2016-02-13] MEDS ORDERED: NAPROXEN 375 MG TAB PO SCH (21:00)
[2016-02-13] MEDS ORDERED: ATORVASTATIN 10 MG TAB PO SCH (21:00)
[2016-02-13] MEDS: ATORVASTATIN 40 MG TAB PO SCH (21:14)
[2016-02-13] MEDS: ASPIRIN 81 MG ECTAB PO SCH (21:14)
[2016-02-13] MEDS: CARVEDILOL 3.125 MG TAB PO SCH (21:14)
[2016-02-13] MEDS: ENOXAPARIN 40 MG/0.4 ML SYR SC SCH (21:15)
[2016-02-13] MEDS: ACETAMINOPHEN 325 MG TAB PO PRN (21:17)
[2016-02-14] VITALS (7 sets, daily range): BP systolic 107–145; BP diastolic 66–85; PULSE 95–101; TEMP 36.6–37.2; O2SAT 95–100
[2016-02-14] MEDS: SODIUM CHLORIDE 0.9% 1000ML 1,000 ML IV SCH (04:30)
[2016-02-14 06:45] LABS: HEMATOCRIT 36.6 % (37-47); MEAN CELL VOLUME 87.6 fL (80-100); MEAN CORPUSCULAR HEMOGLOBIN 28.9 pg (25-34); MEAN CORPUSCULAR HGB CONC 33.1 g/dl (32-36); MEAN PLATELET VOLUME 11.4 fL (7.4-10.4); PLATELET COUNT 169 K/uL (130-400); RED BLOOD COUNT 4.18 M/uL (4.2-5.4); WHITE BLOOD COUNT 7.73 K/uL (4.8-10.8)
[2016-02-14] MEDS: INSULIN ASPART 100 UNITS/ML 3 ML PEN SC SCH ×4 (07:00→21:00)
[2016-02-14 07:18] LABS: BUN/CREATININE RATIO 12.2 (10-20); CALCIUM 8.8 mg/dl (8.5-10.1); CREATININE 0.91 mg/dl (0.60-1.20); POTASSIUM 4.1 mmol/L (3.5-5.1)
[2016-02-14] MEDS: PANTOprazole SOD 40 MG TAB PO SCH (08:55)
[2016-02-14] MEDS: CHOLECALCIFEROL 1000 INTER.UNIT TAB PO SCH (08:55)
[2016-02-14] MEDS: LISINOPRIL 5 MG TAB PO SCH (08:55)
[2016-02-14] MEDS: MULTIVITAMIN TAB PO SCH (08:56)
[2016-02-14] MEDS: CARVEDILOL 3.125 MG TAB PO SCH ×2 (08:56→21:26)
[2016-02-14] MEDS: CLOPIDOGREL BISULFATE 75 MG TAB PO SCH (08:56)
[2016-02-14] MEDS: MONTELUKAST SOD 10 MG TAB PO SCH (08:57)
[2016-02-14] MEDS: CALCIUM 600MG + VIT D 400 IU TAB PO SCH (08:58)
[2016-02-14] MEDS: FLUTICASONE/SALMETEROL 250/50 (ADVAIR) 14 PUFF/1 INHALER INH SCH (08:58)
[2016-02-14] MEDS ORDERED: NATURAL PRODUCTS PO SCH (09:00)
--- NOTE | 2016-02-14 10:43 | Cardiology Follow-Up ---
Subjective General Date of Service: Feb 14, 2016. Chief Complaint: follow up chest pain, acute CA Pt evaluation today including: conversation w/ patient, physical exam History of Present Illness The patient is a 70 year old female seen in follow up. Patient feels well with no recurrent angina last night or this am. Telemetry reveals stable SR without arrhythmia. Patient is tolerating medications well. R wrist procedure site without pain. EKG this am with new lateral ST elevation more prominent than her tracing performed post PCI yesterday. Allergies Coded Allergies: Oxycodone (Unverified Adverse Reaction, Unknown, nausea, 02/13/16) Social History Smoking Status: Former Smoker (20 pack year history; quit 1992) Hx Tobacco Use In Past Year?: No Hx Alcohol Use - Type And Amou: Yes (very rarely beer at a baseball game) Hx Substance Use - Type And Am: No Physical Exam Vital Signs Last Vital Signs Documentation Date Time Temp Pulse Resp B/P Pulse Ox O2 Delivery O2 Flow Rate FiO2 02/14/16 07:48 36.6 100 18 145/75 100 Room Air 02/13/16 16:15 96.0 Physical Exam Constitutional: Level of Distress: NAD ENMT: normal ENT inspection Neck: supple Lungs: Auscultation: no wheezing, no rales/crackles, no rhonchi Cardiovascular: Heart Auscultation: RRR, no murmurs Extremities: no cyanosis, no edema, pertinent finding (R Wrist without hematoma , mild ecchymosis noted ) Neurologic: Gait & Station: pertinent finding (no focal deficits ) Assessment and Plan Assessment and Plan Last Resulted 02/14/16 06:33 Last Resulted 02/14/16 06:33 Past 24 Hours Test 02/13/16 13:28 02/13/16 13:30 02/13/16 19:21 02/13/16 19:30 Range/Units Creatine Kinase MB 12.0 H 12.6 H 0.5-3.6 ng/ml Troponin I 3.290 *H 3.880 *H 0-0.045 ng/ml Creatine Kinase MB Ratio 0-3.0 Impression: 70 year old female 1. Acute anterior wall myocardial infarction for which patient underwent cardiac catheterization , overlapping Resolute 2.25x18 and 2.25x12 GAVIN in mid LAD, jailing a diagonal -no other significant CAD elsewhere. 2. Mild LV systolic dysfunction on echocardiogram, pre cath, with large LAD territory WMA. No clinical CHF 3. DM2 4. Dyslipidemia 5. osteoarthritis Plan: Continue ASA, Plavix, coreg, lisinopril. Atorvastatin dose of 10 mg as outpt increased to 40 mg. Continue to monitor on telemetry. Increase activity as tolerated. Plan for outpt follow up with me within 2 weeks of discharge. Repeat echo in 1 months. Naproxen discontinued. Will need alternative plan for treatment of arthritis pain. DVT prophylaxis: lovenox. 40 mg SQ daily. Laboratory Results Last 24 Hours Test 02/13/16 12:30 02/13/16 13:28 02/13/16 13:30 02/13/16 14:59 Bedside Glucose 105 mg/dl Creatine Kinase MB 12.0 ng/ml Troponin I 3.290 ng/ml Creatine Kinase MB Ratio Kaolin Activated Coagulation Time 265 SECONDS Test 02/13/16 15:26 02/13/16 16:15 02/13/16 19:21 02/13/16 19:30 Kaolin Activated Coagulation Time 234 SECONDS Bedside Glucose 130 mg/dl Creatine Kinase MB 12.6 ng/ml Troponin I 3.880 ng/ml Creatine Kinase MB Ratio Test 02/13/16 20:23 02/14/16 06:33 02/14/16 06:48 02/14/16 09:35 Bedside Glucose 125 mg/dl 143 mg/dl White Blood Count 7.73 K/uL Red Blood Count 4.18 M/uL Hemoglobin 12.1 g/dL Hematocrit 36.6 % Mean Corpuscular Volume 87.6 fL Mean Corpuscular Hemoglobin 28.9 pg Mean Corpuscular Hemoglobin Concent 33.1 g/dl RDW Standard Deviation 41.4 fL RDW Coefficient of Variation 12.8 % Platelet Count 169 K/uL Mean Platelet Volume 11.4 fL Sodium Level 144 mmol/L Potassium Level 4.1 mmol/L Chloride Level 108 mmol/L Carbon Dioxide Level 27 mmol/L Anion Gap 9.0 mmol/L Blood Urea Nitrogen 11 mg/dl Creatinine 0.91 mg/dl Est Creatinine Clear Calc Drug Dose 53.0 ml/min Estimated GFR () 73.6 Estimated GFR (Non- 63.5 BUN/Creatinine Ratio 12.2 Random Glucose 157 mg/dl Calcium Level 8.8 mg/dl Influenza Type A Antigen Neg for Influ A Influenza Type B Antigen Neg for Influ B
--- NOTE | 2016-02-14 12:55 | Progress Note ---
Medicine Progress Note Date & Time of Visit: Feb 14, 2016 at 12:48. Subjective s/p Cardiac cath with GAVIN placement to midLAD yesterday doing fine today denies chest pain, dyspnea, dizziness, palpitations, nausea feels congested on her maxillary sinuses, (+) rhinorrhea denies other symptoms Objective Last 8 Hrs Date Time Temp Pulse Resp B/P Pulse Ox O2 Delivery O2 Flow Rate FiO2 02/14/16 12:23 Room Air 02/14/16 08:00 Room Air 02/14/16 07:48 36.6 100 18 145/75 100 Room Air Physical Exam: General- oriented x 3, not in distress, speaks in sentences with no effort Eyes-EOMI, anicteric ENT- mild tenderness on maxillary regions, oropharynx clear Neck- supple, no JVD Lungs- clear to auscultation bilaterally Heart- normal rate, regular rhythm; no murmurs Abdomen- normal bowel sounds, soft, nontender Extremities- no pretibial edema, no calf tenderness Neuro- alert, oriented x 3; no gross focal deficits Skin- warm & dry Laboratory Results: Last 24 Hours Test 02/13/16 13:28 02/13/16 13:30 02/13/16 14:59 02/13/16 15:26 Creatine Kinase MB 12.0 ng/ml Troponin I 3.290 ng/ml Creatine Kinase MB Ratio Kaolin Activated Coagulation Time 265 SECONDS 234 SECONDS Test 02/13/16 16:15 02/13/16 19:21 02/13/16 19:30 02/13/16 20:23 Bedside Glucose 130 mg/dl 125 mg/dl Creatine Kinase MB 12.6 ng/ml Troponin I 3.880 ng/ml Creatine Kinase MB Ratio Test 02/14/16 06:33 02/14/16 06:48 02/14/16 09:35 02/14/16 11:02 White Blood Count 7.73 K/uL Red Blood Count 4.18 M/uL Hemoglobin 12.1 g/dL Hematocrit 36.6 % Mean Corpuscular Volume 87.6 fL Mean Corpuscular Hemoglobin 28.9 pg Mean Corpuscular Hemoglobin Concent 33.1 g/dl RDW Standard Deviation 41.4 fL RDW Coefficient of Variation 12.8 % Platelet Count 169 K/uL Mean Platelet Volume 11.4 fL Sodium Level 144 mmol/L Potassium Level 4.1 mmol/L Chloride Level 108 mmol/L Carbon Dioxide Level 27 mmol/L Anion Gap 9.0 mmol/L Blood Urea Nitrogen 11 mg/dl Creatinine 0.91 mg/dl Est Creatinine Clear Calc Drug Dose 53.0 ml/min Estimated GFR () 73.6 Estimated GFR (Non- 63.5 BUN/Creatinine Ratio 12.2 Random Glucose 157 mg/dl Calcium Level 8.8 mg/dl Bedside Glucose 143 mg/dl 135 mg/dl Influenza Type A Antigen Neg for Influ A Influenza Type B Antigen Neg for Influ B Assessment & Plan NSTEMI S/P CARDIAC CATH, DRUG ELUTING STENT PLACEMENT TO LAD - presented with chest pain, mild troponin elevation of 0.255, no signs of acute ischemia on EKG - echo: (+) anterior wall WI - evaluated by Dr. Muñoz, appreciate the input emergent cardiac cath performed 02/13/[address] Pedraza LM: normal. LAD: mid vessel 90% stenosis. LCx: normal. RCA: normal. dominant RCA. - added Plavix, Co reg, Lisinopril, statin increased aspirin continued - PT/OT today no nsaids SINUS CONGESTION Augmentin BID ordered WELL-CONTROLLED DM 2 -recent A1C 6.1 -hold metformin continue ISS - BSGs stable MODERATE COPD -no evidence of acute exacerbation -cont inhalers H/O BREAST CA -stable -s/p L breast lumpectomy, chemo and radiation DYSLIPIDEMIA -statin DVT PROPHYLAXIS -subq Lovenox CODE STATUS -FULL CODE per discussion with patient upon admission DISPO lives alone at home PT/OT eval today d/c home when cleared by Cardiology Current Inpatient Medications: Current Inpatient Medications Medications (Trade) Dose Ordered Sig/Nick Route Start Time Stop Time Status Last Admin Dose Admin Enoxaparin Sodium (Lovenox Inj) 40 mg Q24H SC 02/13/16 21:00 03/14/16 20:59 02/13/16 21:15 40 MG Ondansetron HCl (Zofran Inj) 4 mg Q6H PRN IV 02/13/16 11:00 03/14/16 10:59 Nitroglycerin (Nitrostat Tab) 0.4 mg UD PRN SL 02/13/16 11:00 03/14/16 10:59 Insulin Aspart (novoLOG ASPART) SLIDING SCALE If C... ACHS SC 02/13/16 16:15 03/14/16 16:14 02/14/16 12:07 2 UNITS Glucose (Glucose 40% Gel) 15-30 GRAMS 15 GRAMS... UD PRN PO 02/13/16 11:00 03/14/16 10:59 Glucose (Glucose Chew Tab) 4-8 Tablets 4 Tabl... UD PRN PO 02/13/16 11:00 03/14/16 10:59 Dextrose (Dextrose 50% 50ML Syringe) 25-50ML OF 50% DW IV FOR... UD PRN IV 02/13/16 11:00 03/14/16 10:59 Glucagon (Glucagon Inj) 1 mg UD PRN SQ 02/13/16 11:00 03/14/16 10:59 Albuterol (Ventolin Hfa Inhaler) 2 puffs QID PRN INH 02/13/16 11:00 03/14/16 10:59 Aspirin (Ecotrin Tab) 81 mg QPM PO 02/13/16 21:00 03/14/16 20:59 02/13/16 21:14 81 MG Cholecalciferol (Vitamin D Tab) 2,000 inter.unit DAILY PO 02/14/16 09:00 03/15/16 08:59 02/14/16 08:55 2,000 INTER.UNIT Salmeterol Xinafoate/ Fluticasone (Advair Diskus 250/50 Inh) 1 puff DAILY INH 02/14/16 09:00 03/15/16 08:59 02/14/16 08:58 1 PUFF Montelukast Sodium (Singulair Tab) 10 mg DAILY PO 02/14/16 09:00 03/15/16 08:59 02/14/16 08:57 10 MG Multivitamins (Multivitamin Tab) 1 tab DAILY PO 02/14/16 09:00 03/15/16 08:59 02/14/16 08:56 1 TAB Calcium/Vitamin D (Caltrate Plus Tab) 2 tab DAILY PO 02/14/16 09:00 03/15/16 08:59 02/14/16 08:58 2 TAB Pantoprazole Sodium (Protonix Tab) 40 mg QAM PO 02/14/16 09:00 03/15/16 08:59 02/14/16 08:55 40 MG Miscellaneous (Iv Fluids Completed) 1 ea PRN PRN N/A 02/13/16 15:00 02/12/17 14:59 Atorvastatin Calcium (Lipitor Tab) 40 mg QPM PO 02/13/16 21:00 03/14/16 20:59 02/13/16 21:14 40 MG Ondansetron HCl (Zofran Inj) 4 mg Q6H PRN IV 02/13/16 15:45 03/14/16 15:44 Clopidogrel Bisulfate (plAVix TAB) 75 mg QAM PO 02/14/16 09:00 03/15/16 08:59 02/14/16 08:56 75 MG Lisinopril (Zestril Tab) 5 mg QAM PO 02/14/16 09:00 03/15/16 08:59 02/14/16 08:55 5 MG Acetaminophen (Tylenol Tab) 650 mg Q4H PRN PO 02/13/16 15:45 03/14/16 15:44 02/13/16 21:17 650 MG Carvedilol (Coreg Tab) 3.125 mg BID PO 02/13/16 21:00 03/14/16 20:59 02/14/16 08:56 3.125 MG Amoxicillin/ Clavulanate Potassium (Augmentin Tab) 875 mg BIDM PO 02/14/16 16:45 02/24/16 16:44 UNV
[2016-02-14] MEDS: AMOXICILLIN/CLAVULANATE TAB 875 MG TAB PO SCH (16:53)
[2016-02-14] MEDS: ATORVASTATIN 40 MG TAB PO SCH (21:26)
[2016-02-14] MEDS: ASPIRIN 81 MG ECTAB PO SCH (21:26)
[2016-02-14] MEDS: ACETAMINOPHEN 325 MG TAB PO PRN (21:26)
[2016-02-14] MEDS: ENOXAPARIN 40 MG/0.4 ML SYR SC SCH (21:27)
[2016-02-15] VITALS (7 sets, daily range): BP systolic 99–108; BP diastolic 63–71; PULSE 90–98; TEMP 36.7–37.2; O2SAT 95–98
[2016-02-15] MEDS: AMOXICILLIN/CLAVULANATE TAB 875 MG TAB PO SCH ×2 (07:34→15:37)
[2016-02-15] MEDS: FLUTICASONE/SALMETEROL 250/50 (ADVAIR) 14 PUFF/1 INHALER INH SCH (07:34)
[2016-02-15] MEDS: CALCIUM 600MG + VIT D 400 IU TAB PO SCH (07:35)
[2016-02-15] MEDS: CHOLECALCIFEROL 1000 INTER.UNIT TAB PO SCH (07:35)
[2016-02-15] MEDS: PANTOprazole SOD 40 MG TAB PO SCH (07:35)
[2016-02-15] MEDS: MONTELUKAST SOD 10 MG TAB PO SCH (07:35)
[2016-02-15] MEDS: CLOPIDOGREL BISULFATE 75 MG TAB PO SCH (07:35)
[2016-02-15] MEDS: MULTIVITAMIN TAB PO SCH (07:35)
[2016-02-15] MEDS: CARVEDILOL 3.125 MG TAB PO SCH (07:36)
[2016-02-15] MEDS: LISINOPRIL 5 MG TAB PO SCH (07:36)
[2016-02-15] MEDS: INSULIN ASPART 100 UNITS/ML 3 ML PEN SC SCH ×2 (07:45→11:49)
[2016-02-15 08:04] LABS: BUN/CREATININE RATIO 16.7 (10-20); CALCIUM 8.9 mg/dl (8.5-10.1); CREATININE 0.78 mg/dl (0.60-1.20); POTASSIUM 3.8 mmol/L (3.5-5.1)
--- NOTE | 2016-02-15 10:25 | Cardiology Follow-Up ---
Subjective General Date of Service: Feb 15, 2016. Chief Complaint: follow up chest pain, acute [place] Pt evaluation today including: conversation w/ patient, physical exam History of Present Illness The patient is a 70 year old female seen in follow up. Patient feels well. No angina. Resting HR is still a little above goal on telemetry at 90 bpm, and 100-110 bpm with minimal exertion. Her flu screen was negative. She is now on augmentin for sinus infection and is tolerating it well so far. EKG reveals Lateral ST elevation, improved to some degree compared to yesterday. Allergies Coded Allergies: Oxycodone (Unverified Adverse Reaction, Unknown, nausea, 02/13/16) Social History Smoking Status: Former Smoker (20 pack year history; quit 1992) Hx Tobacco Use In Past Year?: No Hx Alcohol Use - Type And Amou: Yes (very rarely beer at a baseball game) Hx Substance Use - Type And Am: No Physical Exam Vital Signs Last Vital Signs Documentation Date Time Temp Pulse Resp B/P Pulse Ox O2 Delivery O2 Flow Rate FiO2 02/15/16 08:00 Room Air 02/15/16 07:39 36.9 90 16 101/66 97 02/13/16 16:15 96.0 Physical Exam Constitutional: Level of Distress: NAD ENMT: normal ENT inspection Neck: supple Lungs: Auscultation: no wheezing, no rales/crackles, no rhonchi Cardiovascular: Heart Auscultation: RRR, no murmurs Extremities: no cyanosis, no edema, pertinent finding (R Wrist without hematoma , mild ecchymosis noted ) Neurologic: Gait & Station: pertinent finding (no focal deficits ) Assessment and Plan Assessment and Plan Last Resulted 02/14/16 06:33 Last Resulted 02/15/16 07:00 Impression: 70 year old female 1. Acute anterior wall myocardial infarction for which patient underwent cardiac catheterization , overlapping Resolute 2.25x18 and 2.25x12 GAVIN in mid LAD, jailing a diagonal -no other significant CAD elsewhere. 2. Mild LV systolic dysfunction on echocardiogram, pre cath, with large LAD territory WMA. No clinical CHF 3. DM2 4. Dyslipidemia 5. osteoarthritis Plan: Continue ASA, Plavix, coreg, lisinopril. Coreg dose increased this am to 6.25 mg bid. Atorvastatin dose of 10 mg as outpt increased to 40 mg. Naproxen discontinued. Will need alternative plan for treatment of arthritis pain. Cardiac rehab referral was placed. Pt counseled to avoid going back to her exercise class until she is in cardiac rehab. Pt counseled to avoid snow shoveling for the rest of the season. Disposition: stable for discharge on the above therapy and Augmentin. Pt already has follow up with PCP on . I have requested follow up with me in 3 weeks. Laboratory Results Last 24 Hours Test 02/14/16 11:02 02/14/16 16:01 02/14/16 20:15 02/15/16 06:51 Bedside Glucose 135 mg/dl 138 mg/dl 128 mg/dl 138 mg/dl Test 02/15/16 07:00 Sodium Level 144 mmol/L Potassium Level 3.8 mmol/L Chloride Level 107 mmol/L Carbon Dioxide Level 26 mmol/L Anion Gap 11.0 mmol/L Blood Urea Nitrogen 13 mg/dl Creatinine 0.78 mg/dl Est Creatinine Clear Calc Drug Dose 61.9 ml/min Estimated GFR () 88.6 Estimated GFR (Non- 76.5 BUN/Creatinine Ratio 16.7 Random Glucose 136 mg/dl Calcium Level 8.9 mg/dl
[2016-02-15] MEDS ORDERED: CARVEDILOL 3.125 MG TAB PO ONE (10:45)
--- NOTE | 2016-02-15 15:15 | Progress Note ---
Medicine Progress Note Date & Time of Visit: Feb 15, 2016 at 15:10. Subjective in good spirits, sitting up in bed main symptom is sinus congestion no cough, shortness of breath chest pain has resolved no weakness, dizziness, nausea no other symptoms states she is ready and would like to be discharged today Objective Last 8 Hrs Date Time Temp Pulse Resp B/P Pulse Ox O2 Delivery O2 Flow Rate FiO2 02/15/16 13:25 36.7 96 16 102/66 98 Room Air 02/15/16 12:35 Room Air 02/15/16 11:37 36.7 96 16 99/63 98 Room Air 02/15/16 08:00 Room Air 02/15/16 07:39 36.9 90 16 101/66 97 Room Air Physical Exam: General- oriented x 3, not in distress, speaks in sentences with no effort Eyes- anicteric Neck- no JVD Lungs- clear breath sounds bilaterally Heart- normal rate, regular rhythm; no murmurs Abdomen- normal bowel sounds, soft, nontender Extremities- no pretibial edema, no calf tenderness Neuro- alert, oriented x 3; no gross focal deficits Skin- warm & dry Laboratory Results: Last 24 Hours Test 02/14/16 16:01 02/14/16 20:15 02/15/16 06:51 02/15/16 07:00 Bedside Glucose 138 mg/dl 128 mg/dl 138 mg/dl Sodium Level 144 mmol/L Potassium Level 3.8 mmol/L Chloride Level 107 mmol/L Carbon Dioxide Level 26 mmol/L Anion Gap 11.0 mmol/L Blood Urea Nitrogen 13 mg/dl Creatinine 0.78 mg/dl Est Creatinine Clear Calc Drug Dose 61.9 ml/min Estimated GFR () 88.6 Estimated GFR (Non- 76.5 BUN/Creatinine Ratio 16.7 Random Glucose 136 mg/dl Calcium Level 8.9 mg/dl Test 02/15/16 10:57 Bedside Glucose 123 mg/dl Assessment & Plan NSTEMI S/P CARDIAC CATH, DRUG ELUTING STENT PLACEMENT TO LAD - presented with chest pain, mild troponin elevation of 0.255, no signs of acute ischemia on EKG - echo: (+) anterior wall [place] - evaluated by Dr. Muñoz, appreciate the input emergent cardiac cath performed 02/13/[address] Pedraza LM: normal. LAD: mid vessel 90% stenosis. LCx: normal. RCA: normal. dominant RCA. - added Plavix, Co reg, Lisinopril, statin increased aspirin continued no nsaids - discharge plan: Aspirin, Plavix, CoReg, Lisinopril, Atorvastatin ff up with Dr. Muñoz in 3 weeks Cardiac Rehab SINUS CONGESTION Augmentin BID started, continue for 5 more days nasal saline spray ff up with PCP WELL-CONTROLLED DM 2 -recent A1C 6.1 - resume Metformin MODERATE COPD -no evidence of acute exacerbation -cont inhalers H/O BREAST CA -stable -s/p L breast lumpectomy, chemo and radiation DYSLIPIDEMIA - increased statin DVT PROPHYLAXIS -subq Lovenox CODE STATUS -FULL CODE per discussion with patient upon admission DISPO d/c home today ff up with PCP in 3-5 days ff up with [employer] Dr. Muñoz Current Inpatient Medications: Current Inpatient Medications Medications (Trade) Dose Ordered Sig/Nick Route Start Time Stop Time Status Last Admin Dose Admin Enoxaparin Sodium (Lovenox Inj) 40 mg Q24H SC 02/13/16 21:00 03/14/16 20:59 02/14/16 21:27 40 MG Ondansetron HCl (Zofran Inj) 4 mg Q6H PRN IV 02/13/16 11:00 03/14/16 10:59 Nitroglycerin (Nitrostat Tab) 0.4 mg UD PRN SL 02/13/16 11:00 03/14/16 10:59 Insulin Aspart (novoLOG ASPART) SLIDING SCALE If C... ACHS SC 02/13/16 16:15 03/14/16 16:14 02/15/16 11:49 2 UNITS Glucose (Glucose 40% Gel) 15-30 GRAMS 15 GRAMS... UD PRN PO 02/13/16 11:00 03/14/16 10:59 Glucose (Glucose Chew Tab) 4-8 Tablets 4 Tabl... UD PRN PO 02/13/16 11:00 03/14/16 10:59 Dextrose (Dextrose 50% 50ML Syringe) 25-50ML OF 50% DW IV FOR... UD PRN IV 02/13/16 11:00 03/14/16 10:59 Glucagon (Glucagon Inj) 1 mg UD PRN SQ 02/13/16 11:00 03/14/16 10:59 Albuterol (Ventolin Hfa Inhaler) 2 puffs QID PRN INH 02/13/16 11:00 03/14/16 10:59 Aspirin (Ecotrin Tab) 81 mg QPM PO 02/13/16 21:00 03/14/16 20:59 02/14/16 21:26 81 MG Cholecalciferol (Vitamin D Tab) 2,000 inter.unit DAILY PO 02/14/16 09:00 03/15/16 08:59 02/15/16 07:35 2,000 INTER.UNIT Salmeterol Xinafoate/ Fluticasone (Advair Diskus 250/50 Inh) 1 puff DAILY INH 02/14/16 09:00 03/15/16 08:59 02/15/16 07:34 1 PUFF Montelukast Sodium (Singulair Tab) 10 mg DAILY PO 02/14/16 09:00 03/15/16 08:59 02/15/16 07:35 10 MG Multivitamins (Multivitamin Tab) 1 tab DAILY PO 02/14/16 09:00 03/15/16 08:59 02/15/16 07:35 1 TAB Calcium/Vitamin D (Caltrate Plus Tab) 2 tab DAILY PO 02/14/16 09:00 03/15/16 08:59 02/15/16 07:35 2 TAB Pantoprazole Sodium (Protonix Tab) 40 mg QAM PO 02/14/16 09:00 03/15/16 08:59 02/15/16 07:35 40 MG Miscellaneous (Iv Fluids Completed) 1 ea PRN PRN N/A 02/13/16 15:00 02/12/17 14:59 Atorvastatin Calcium (Lipitor Tab) 40 mg QPM PO 02/13/16 21:00 03/14/16 20:59 02/14/16 21:26 40 MG Ondansetron HCl (Zofran Inj) 4 mg Q6H PRN IV 02/13/16 15:45 03/14/16 15:44 Clopidogrel Bisulfate (plAVix TAB) 75 mg QAM PO 02/14/16 09:00 03/15/16 08:59 02/15/16 07:35 75 MG Lisinopril (Zestril Tab) 5 mg QAM PO 02/14/16 09:00 2/8/17 08:59 02/15/16 07:36 5 MG Acetaminophen (Tylenol Tab) 650 mg Q4H PRN PO 02/13/16 15:45 03/14/16 15:44 02/14/16 21:26 650 MG Amoxicillin/ Clavulanate Potassium (Augmentin Tab) 875 mg BIDM PO 02/14/16 16:45 02/24/16 16:44 02/15/16 07:34 875 MG Carvedilol (Coreg Tab) 6.25 mg BID PO 02/15/16 21:00 03/16/16 20:59
[2016-02-15] MEDS ORDERED: LPT40 PO (15:26)
[2016-02-15] MEDS ORDERED: AMOX1TAB43 PO (15:26)
[2016-02-15] MEDS ORDERED: NTRSLP4 SL (15:26)
[2016-02-15] MEDS ORDERED: LSN5 PO (15:26)
[2016-02-15] MEDS ORDERED: CRG625 PO (15:26)
[2016-02-15] MEDS ORDERED: PLV75 PO (15:26)
[2016-02-15] MEDS ORDERED: CLOPIDOGREL BISULFATE 75 MG TAB PO SCH (15:30)
--- NOTE | 2016-02-15 15:32 | Discharge Instructions ---
Discharge Instructions Admission Reason for Admission: Chest Pain Discharge Discharge Diagnosis / Problem: Acute Anterior Wall Myocardial Infarction Discharge Goals Goal(s): Diagnostic testing, Therapeutic intervention Activity Recommendations Activity Limitations: as noted below (No heavy exertion until re-evaluated by Primary Care Physician and Reliability Technicians.) Lifting Limitations: none Exercise/Sports Limitations: none . Instructions / Follow-Up Instructions / Follow-Up PLEASE REVIEW YOUR NEW MEDICATION LIST AND FOLLOW INSTRUCTIONS CAREFULLY. FOLLOW UP WITH PRIMARY CARE PHYSICIAN AND DIVER ASSISTANT ADVISED. Home Care: * Take your medications exactly as directed. Don't skip doses. * Remember that recovery after a heart attack takes time. Plan to rest for at lease 4-8 weeks while you recover. Then return to normal activity when your doctor says it's okay. * Ask your doctor about joining a heart rehabilitation program. * Tell your doctor if you are feeling depressed. Feelings of sadness are common after a heart attack, but it is important that you speak to someone if you are feeling overwhelmed by these feelings. * If you are having chest pain, call 911 for an ambulance. Do NOT drive yourself to the hospital. * Ask your family members to learn CPR. * Learn to take your own blood pressure and pulse. Keep a record of your results. Ask your doctor when you should seek emergency medical attention. He or she will tell you which blood pressure reading is dangerous. Lifestyle Changes: * Maintain a healthy weight. Get help to lose any extra pounds. * Cut back on salt. * Limit canned, dried, packaged, and fast foods. * Don't add salt to your food. * Season foods with herbs instead of salt when you cook. * Break the smoking habit. Enroll in a stop-smoking program to improve your chances of success. * Limit fatty foods. * Check your lipid levels regularly. (Your doctor can show you how to do this.) * Build up your activity according to your doctor's recommendation. * Ask your doctor when it's okay to resume sexual activity. * Tell your doctor about any erectile dysfunction (ED) medication you are taking. Some ED medications are not safe if you take certain heart medications. * Try to manage stress. Current Hospital Diet Patient's current hospital diet: Diabetes Type 2 Diet, AHA Diet (Heart Healthy) Discharge Diet Recommended Diet: AHA Diet (Heart Healthy), Diabetes Type 2 Diet Procedures Procedures Performed: 02/13/16: s/p cardiac catheterization , Dreug Eluting Stent in mid LAD Pending Studies Studies pending at discharge: no Medical Emergencies . Who to Call and When: Medical Emergencies: If at any time you feel your situation is an emergency, please call 911 immediately. Call 911 immediately or go to your nearest Emergency Room if you experience any of the following: Warning Signs and Symptoms of a Heart Attack * Chest pain that is not relieved by medication * Shortness of breath . Non-Emergent Contact Non-Emergency issues call your: Primary Care Provider Call Non-Emergent contact if: you have a fever, wound has increased drainage, wound has increased redness, wound has increased pain, you have any medication questions . Past History Medical & Surgical History: (1) NSTEMI (non-ST elevated myocardial infarction) (2) Asthma (3) COPD, moderate (4) Diabetes mellitus type II, controlled (5) Dyslipidemia (6) History of breast cancer (7) History of cholecystectomy (8) History of lumpectomy of left breast (9) History of meniscectomy of left knee . "Provider Documentation" section prepared by Abdi Ma. AMI Core Measures Reason no ASA as I/P: Treatment provided - N/A Reason no ASA at D/C: Treatment provided - N/A Reason no statin as I/P: Treatment provided - N/A Reason no statin at D/C: Treatment provided - N/A VTE Core Measure Inpt VTE Proph given/why not?: Enoxaparin (Lovenox)SQ
--- NOTE | 2016-02-15 15:38 | Discharge Summary ---
Discharge Summary Admission Date: Feb 14, 2016 at 12:32 Discharge Date: Feb 15, 2016 Discharge Disposition: Home Principal Diagnosis: NSTEMI- ACUTE ANTERIOR WALL MYOCARDIAL INFARCTION Secondary Diagnoses/Problems: Please refer to hospital course below. Procedures: 02/13/16: S/P CARDIAC CATH, DRUG ELUTING STENT PLACEMENT TO LAD Consultations: [employer] Receptionist Dr. Muñoz Pending Studies/Follow-Up: Please refer to hospital course below. Medication Reconciliation New Medications: Amoxicillin & Pot Clavulanate (Amoxicillin/Clavulanate P) 1 Tab Tab 875 MG PO BIDM for 6 Days, #12 TAB 0 Refills Atorvastatin (Atorvastatin Calcium) 40 Mg Tab 40 MG PO QPM for 30 Days, #30 TAB 2 Refills Carvedilol (Carvedilol) 6.25 Mg Tab 6.25 MG PO BID for 30 Days, #60 TAB 2 Refills Clopidogrel Bisulfate (Clopidogrel) 75 Mg Tab 75 MG PO QAM for 30 Days, #30 TAB 2 Refills Lisinopril (Lisinopril) 5 Mg Tab 5 MG PO QAM for 30 Days, #30 TAB 2 Refills Nitroglycerin (Nitrostat) 0.4 Mg/1 Tab Subl 0.4 MG SL UD PRN for Chest Pain, #20 TABS 2 Refills PRN for chest pain: take 1 tab every 5 minutes for maximum of 3 tablets in 15 minutes ; If pain is unrelieved , call [phone] immediately Continued Medications: Albuterol Inhaler (Ventolin Inhaler) Aers 2 PUFFS INH QID PRN for Wheezing, #5 INHALER Aspirin (Aspirin Ec) 81 Mg Tab 81 MG PO QPM Calcium (Calcium) 600 Mg Tab 1200 MG PO DAILY Cholecalciferol (Vitamin D3) 1,000 Unit Tab 2000 UNITS PO DAILY for 30 Days, TAB 5 Refills Fluticasone Prop/Salmeterol (Advair Diskus 250/50 60 Dose) 1 Ea Aerp 1 PUFF INH DAILY, INHALER Metformin HCl (Metformin HCl) 500 Mg Tab 500 MG PO BID, #90 Misc Natural Products (Osteo Bi-Flex Advanced Do) 1 Tab Tab 1 TAB PO DAILY Montelukast Sodium (Singulair) 10 Mg Tab 10 MG PO DAILY, TAB Multivitamin (Multivitamin) Tab 1 TAB PO DAILY, TAB Omeprazole (Prilosec) 40 Mg Cap 40 MG PO DAILY, CAP Discontinued Medications: Atorvastatin (Lipitor) 10 Mg Tab 10 MG PO QPM, TAB Naproxen (Naproxen) 375 Mg Tab 375 MG PO BID Admission Information HPI (per Admitting provider): This is a 70 y/o female with PMHx of moderate COPD, well-controlled DM 2, Dyslipidemia and other problems as outlined below who presents to the ED c/o chest pain that began early this morning. Pt reports that she woke up around 0500 with chest pain that she describes as "heavy" 5/10 L sided chest pain that does not radiate anywhere. Pain was aggravated with deep inspiration but she did not notice any change with exertion. Sxs were preceded by a few days of fatigue and sinus congestion. Pt has FmHx of CAD. She is a former smoker and has no prior history of cardiac problems. Pt denies fever/chills, diaphoresis, palpitations, SOB, wheezing, abd pain, N/V, bowel or bladder issues, LE edema , calf pain, lightheadedness/dizziness. In the ED, pt is tachy on arrival but saturating well on room air. Trop 0.255. EKG: sinus tachy with no acute ischemic changes. CXR is negative. Pt received nitro paste in ED with some relief of sxs however she is still complaining of 3/10 chest pain. Pt will be admitted for further evaluation and treatment. Physical Exam (per Admitting): General Appearance: WD/WN, no apparent distress Head: normocephalic, atraumatic Eyes: normal inspection ENT: hearing grossly normal Neck: supple Respiratory/Chest: chest non-tender, lungs clear, normal breath sounds, no respiratory distress Cardiovascular: regular rate, rhythm, no edema, no murmur Abdomen/GI: normal bowel sounds, non tender, soft Back: normal inspection Extremities/Musculoskelatal: normal inspection, no calf tenderness, no pedal edema Neurologic/Psych: alert, normal mood/affect, oriented x 3 Skin: normal color, warm/dry Hospital Course NSTEMI- ACUTE ANTERIOR WALL MYOCARDIAL INFARCTION S/P CARDIAC CATH, DRUG ELUTING STENT PLACEMENT TO LAD - presented with chest pain, mild troponin elevation of 0.255, no signs of acute ischemia on EKG - echo: (+) anterior wall [place] - evaluated by Dr. Muñoz, appreciate the input emergent cardiac cath performed 02/13/[address] Pedraza LM: normal. LAD: mid vessel 90% stenosis. LCx: normal. RCA: normal. dominant RCA. - added Plavix, Co reg, Lisinopril, statin increased aspirin continued no nsaids - discharge plan: Aspirin, Plavix, CoReg, Lisinopril, Atorvastatin ff up with Dr. Muñoz in 3 weeks Cardiac Rehab SINUSITIS Augmentin BID started, continue for 5 more days nasal saline spray ff up with PCP WELL-CONTROLLED DM 2 -recent A1C 6.1 - resume Metformin MODERATE COPD -no evidence of acute exacerbation -cont inhalers H/O BREAST CA -stable -s/p L breast lumpectomy, chemo and radiation DYSLIPIDEMIA - statin increased DISPOSITION d/c home ff up with PCP in 3-5 days ff up with [employer] Re[employer] Dr. Muñoz in 3 weeks Total time spent on discharge = 40 minutes This includes examination of the patient, discharge planning, medication reconciliation, and communication with other providers. Discharge Instructions Discharge Instructions Admission Reason for Admission: Chest Pain Discharge Discharge Diagnosis / Problem: Acute Anterior Wall Myocardial Infarction Discharge Goals Goal(s): Diagnostic testing, Therapeutic intervention Activity Recommendations Activity Limitations: as noted below (No heavy exertion until re-evaluated by Primary Care Physician and Law Firm Receptionist.) Lifting Limitations: none Exercise/Sports Limitations: none . Instructions / Follow-Up Instructions / Follow-Up PLEASE REVIEW YOUR NEW MEDICATION LIST AND FOLLOW INSTRUCTIONS CAREFULLY. FOLLOW UP WITH PRIMARY CARE PHYSICIAN AND PARKING MANAGER ADVISED. Home Care: * Take your medications exactly as directed. Don't skip doses. * Remember that recovery after a heart attack takes time. Plan to rest for at lease 4-8 weeks while you recover. Then return to normal activity when your doctor says it's okay. * Ask your doctor about joining a heart rehabilitation program. * Tell your doctor if you are feeling depressed. Feelings of sadness are common after a heart attack, but it is important that you speak to someone if you are feeling overwhelmed by these feelings. * If you are having chest pain, call 911 for an ambulance. Do NOT drive yourself to the hospital. * Ask your family members to learn CPR. * Learn to take your own blood pressure and pulse. Keep a record of your results. Ask your doctor when you should seek emergency medical attention. He or she will tell you which blood pressure reading is dangerous. Lifestyle Changes: * Maintain a healthy weight. Get help to lose any extra pounds. * Cut back on salt. * Limit canned, dried, packaged, and fast foods. * Don't add salt to your food. * Season foods with herbs instead of salt when you cook. * Break the smoking habit. Enroll in a stop-smoking program to improve your chances of success. * Limit fatty foods. * Check your lipid levels regularly. (Your doctor can show you how to do this.) * Build up your activity according to your doctor's recommendation. * Ask your doctor when it's okay to resume sexual activity. * Tell your doctor about any erectile dysfunction (ED) medication you are taking. Some ED medications are not safe if you take certain heart medications. * Try to manage stress. Current Hospital Diet Patient's current hospital diet: Diabetes Type 2 Diet, AHA Diet (Heart Healthy) Discharge Diet Recommended Diet: AHA Diet (Heart Healthy), Diabetes Type 2 Diet Procedures Procedures Performed: 02/13/16: s/p cardiac catheterization , Dreug Eluting Stent in mid LAD Pending Studies Studies pending at discharge: no Medical Emergencies . Who to Call and When: Medical Emergencies: If at any time you feel your situation is an emergency, please call 911 immediately. Call 911 immediately or go to your nearest Emergency Room if you experience any of the following: Warning Signs and Symptoms of a Heart Attack * Chest pain that is not relieved by medication * Shortness of breath . Non-Emergent Contact Non-Emergency issues call your: Primary Care Provider Call Non-Emergent contact if: you have a fever, wound has increased drainage, wound has increased redness, wound has increased pain, you have any medication questions . Past History Medical & Surgical History: (1) NSTEMI (non-ST elevated myocardial infarction) (2) Asthma (3) COPD, moderate (4) Diabetes mellitus type II, controlled (5) Dyslipidemia (6) History of breast cancer (7) History of cholecystectomy (8) History of lumpectomy of left breast (9) History of meniscectomy of left knee . "Provider Documentation" section prepared by Abdi Ma. AMI Core Measures Reason no ASA as I/P: Treatment provided - N/A Reason no ASA at D/C: Treatment provided - N/A Reason no statin as I/P: Treatment provided - N/A Reason no statin at D/C: Treatment provided - N/A VTE Core Measure Inpt VTE Proph given/why not?: Enoxaparin (Lovenox)SQ
[2016-02-15] MEDS ORDERED: CARVEDILOL 6.25 MG TAB PO SCH (21:00)
--- NOTE | 2016-02-29 21:15 | EMERGENCY ROOM VISIT NOTE ---
History First contact with patient: 08:05 Chief Complaint: CHEST PAIN Stated Complaint: CHEST PAIN Nursing Triage Summary: pt awoke at 5 am, congested and chest pain with deep inhalation, pt took sudafed, went back to bed, awoke at 7am and felt worse, called 911, hx asthma, dm, breast ca given 324mg asa and 1 ntg without relief History of Present Illness The patient is a 70 year old white female who presents to the Emergency Room with complaints of chest congestion and chest pain that was worse with deep inhalation. She awoke around 5 AM with the symptoms. She states she took some Sudafed and went back to bed. She awoke at 7 AM and felt worse. She called 911 and arrives by [facility] ambulance. She was initially given aspirin chews and nitroglycerin spray without relief. She denies any sweats or chills. No other cold symptoms. No pain radiating through to her back. No crushing chest pain. No prior history of similar symptoms. Pain was not exertional. Former smoker. No lightheadedness or dizziness. Review of Systems REVIEW OF SYSTEM: HEENT: No dizziness, visual problems, hearing loss, or tinnitus. There is no difficulty swallowing and no oral lesions are present. PULMONARY: No cough, shortness of breath, sputum production or hemoptysis. CARDIOVASCULAR: No palpitations, shortness of breath or peripheral edema. GASTROINTESTINAL: No diarrhea, constipation, nausea, vomiting, or abdominal pain. GENITOURINARY: No dysuria, frequency, urgency or nocturia. NEUROLOGIC: No weakness, muscle tenderness, epilepsy or history of neurological problems. No history of chronic headaches. MUSCULOSKELETAL: No history of joint tenderness/swelling. No history of arthritis or arthralgias. SKIN: No rashes or lesions. PSYCHIATRIC: No history of depression or mental illness. ENDOCRINE: No history of thyroid disorders, or abnormal hair growth. Past Medical/Surgical History Medical Problems: (1) Asthma (2) Chest pain (3) COPD, moderate (4) Diabetes mellitus type II, controlled (5) Dyslipidemia (6) History of breast cancer (7) NSTEMI (non-ST elevated myocardial infarction) Surgical Problems: (1) History of cholecystectomy (2) History of lumpectomy of left breast (3) History of meniscectomy of left knee Family History Diabetes mellitus FH: cancer FH: heart disease FHx: gallbladder disease Social History Smoking Status: Former Smoker (20 pack year history; quit 1992) Smokeless Tobacco Use: No Drug Use: none Housing Status: lives with family Occupation Status: retired (nurse) Current/Historical Medications Scheduled Amoxicillin & Pot Clavulanate (Amoxicillin/Clavulanate P), 875 MG PO BIDM Aspirin (Aspirin Ec), 81 MG PO QPM Atorvastatin (Atorvastatin Calcium), 40 MG PO QPM Calcium (Calcium), 1,200 MG PO DAILY Carvedilol (Carvedilol), 6.25 MG PO BID Cholecalciferol (Vitamin D3), 2,000 UNITS PO DAILY Clopidogrel Bisulfate (Clopidogrel), 75 MG PO QAM Fluticasone Prop/Salmeterol (Advair Diskus 250/50 60 Dose), 1 PUFF INH DAILY Lisinopril (Lisinopril), 5 MG PO QAM Metformin HCl (Metformin HCl), 500 MG PO BID Misc Natural Products (Osteo Bi-Flex Advanced Do), 1 TAB PO DAILY Montelukast Sodium (Singulair), 10 MG PO DAILY Multivitamin (Multivitamin), 1 TAB PO DAILY Omeprazole (Prilosec), 40 MG PO DAILY Scheduled PRN Albuterol Inhaler (Ventolin Inhaler), 2 PUFFS INH QID PRN for Wheezing Nitroglycerin (Nitrostat), 0.4 MG SL UD PRN for Chest Pain Allergies Coded Allergies: Oxycodone (Unverified Adverse Reaction, Unknown, nausea, 02/13/16) Physical Exam Vital Signs Date Time Temp Pulse Resp B/P Pulse Ox O2 Delivery O2 Flow Rate FiO2 02/13/16 10:59 160/81 02/13/16 10:56 114 22 96 02/13/16 10:28 156/91 02/13/16 10:26 112 23 97 02/13/16 10:15 97 Room Air 02/13/16 09:58 145/85 02/13/16 09:56 109 23 96 02/13/16 09:28 145/102 02/13/16 09:26 104 18 96 02/13/16 09:18 112 141/89 97 Room Air 02/13/16 09:12 141/89 02/13/16 08:26 108 19 95 02/13/16 08:02 123 02/13/16 08:02 36.5 120 21 157/88 96 Room Air 02/13/16 08:02 96 Room Air 02/13/16 08:02 96 Room Air 02/13/16 07:58 157/88 Pain Rating (0-10): 3.0 Physical Exam Gen.: Well-developed, well-nourished, elderly white female, in no acute distress. Sitting on a bed. Alert and oriented. Skin:Warm and dry with good turgor. No rashes or lesions. No ecchymosis or erythema. The patient is not diaphoretic. No abrasions. HEENT: Normocephalic atraumatic. Eyes PERRLA, EOMI. No conjunctiva or scleral injection. Nares patent bilaterally without turbinate enlargement. No significant drainage. No epistaxis. Oropharynx without erythema or exudate. Uvula midline, oral mucosa moist. No lesions present. Lymphatics are palpated without anterior or posterior chain enlargement or tenderness. Heart: Heart RRR. No MGR. Peripheral pulses are 2+ . Lungs: Lungs are clear to auscultation. No crackles rhonchi or wheezing. Good air movement. The patient is able to take a deep breath. Abdomen: Abdomen was inspected, auscultated, and palpated. Bowel sounds present x 4. Soft, nontender to palpation. No hepato-splenomegaly. No masses noted. No rebound. Musculoskeletal: Gross motor function of the upper and lower extremities is intact and unremarkable. Mild discomfort with palpation over the anterior chest wall. Neurologic: Gross sensation is intact across the upper and lower extremities by soft touch. Medical Decision & Procedures ER Provider Diagnostic Interpretation: EKG obtained today was reviewed with Dr. Amador. It shows sinus tachycardia with a rate of 110. No other significant changes are noted. No acute ST or T-wave elevations are present. Chest x-ray obtained today was read by radiology as unremarkable. No acute process. Laboratory Results Test 02/13/16 07:40 Immature Granulocyte % (Auto) 0.5 % White Blood Count 10.53 K/uL (4.8-10.8) Red Blood Count 4.86 M/uL (4.2-5.4) Hemoglobin 14.2 g/dL (12.0-16.0) Hematocrit 42.7 % (37-47) Mean Corpuscular Volume 87.9 fL (80-100) Mean Corpuscular Hemoglobin 29.2 pg (25-34) Mean Corpuscular Hemoglobin Concent 33.3 g/dl (32-36) Platelet Count 191 K/uL (130-400) Mean Platelet Volume 11.8 fL (7.4-10.4) Neutrophils (%) (Auto) 73.4 % Lymphocytes (%) (Auto) 19.8 % Monocytes (%) (Auto) 5.1 % Eosinophils (%) (Auto) 0.9 % Basophils (%) (Auto) 0.3 % Neutrophils # (Auto) 7.73 K/uL (1.4-6.5) Lymphocytes # (Auto) 2.08 K/uL (1.2-3.4) Monocytes # (Auto) 0.54 K/uL (0.11-0.59) Eosinophils # (Auto) 0.10 K/uL (0-0.5) Basophils # (Auto) 0.03 K/uL (0-0.2) Immature Granulocyte # (Auto) 0.05 K/uL (0.00-0.02) Prothrombin Time 9.7 SECONDS (9.0-12.0) Prothromb Time International Ratio 0.9 (0.9-1.1) Activated Partial Thromboplast Time 23.7 SECONDS (21.0-31.0) Partial Thromboplastin Ratio 0.9 D-Dimer 440 ug/L FEU (0-500) Total Creatine Kinase 87 U/L (26-192) Thyroid Stimulating Hormone (TSH) 1.690 uIu/ml (0.300-4.500) Chemistry Specimen Hemolysis CBC, PTT/INR, d-dimer, CK/CK-MB, troponin, and PRP were obtained. CBC is unremarkable. INR is 0.9. D-dimer is normal at 440. PRP is unremarkable. CK and CK-MB are also normal. Troponin is elevated at 0.255. Medications Administered Medications (Trade) Dose Ordered Sig/Nick Route Start Time Stop Time Status Last Admin Dose Admin Nitroglycerin (Nitroglycerin 2% Oint) 1 inch NOW ONCE EXT 02/13/16 10:15 02/13/16 10:16 DC 02/13/16 10:15 1 INCH Nitroglycerin paste to the chest ED Course Patient was educated regarding today's findings. Conservative care measures were discussed. IV was established. Labs were obtained. EKG and chest x-ray were also obtained. Patient had received nitroglycerin spray and aspirin in the ambulance prior to arrival. There was not much improvement in her symptoms. Her troponin was found to be elevated. The rest of her labs were unremarkable. There is no acute change on her EKG. Patient was recommended for admission. She was in agreement. She was given 1 inch of nitroglycerin paste to her chest. Hospitalist service was consulted for admission. Please see that dictation for final management. Patient remained stable while in the ED. She was seen in conjunction with Dr. Amador, who also evaluated the patient and concurred with today's diagnosis and treatment plan. Medical Decision Possibility of acute ME, ACS, PE, ammonia, muscle strain, and common cold were considered, among others. Impression Primary Impression: Chest pain Departure Information Dispostion Still a Patient Condition FAIR Prescriptions Nitroglycerin (Nitrostat) 0.4 Mg/1 Tab Subl 0.4 MG SL UD Y for Chest Pain, #20 TABS 2 Refills PRN for chest pain: take 1 tab every 5 minutes for maximum of 3 tablets in 15 minutes ; If pain is unrelieved , call [phone] immediately Prov: Abdi Ma MD 02/15/16 Lisinopril (Lisinopril) 5 Mg Tab 5 MG PO QAM for 30 Days, #30 TAB 2 Refills Prov: Abdi Ma MD 02/15/16 Carvedilol (Carvedilol) 6.25 Mg Tab 6.25 MG PO BID for 30 Days, #60 TAB 2 Refills Prov: Abdi Ma MD 02/15/16 Atorvastatin (Atorvastatin Calcium) 40 Mg Tab 40 MG PO QPM for 30 Days, #30 TAB 2 Refills Prov: Abdi Ma MD 02/15/16 Clopidogrel Bisulfate (Clopidogrel) 75 Mg Tab 75 MG PO QAM for 30 Days, #30 TAB 2 Refills Prov: Abdi Ma MD 02/15/16 Amoxicillin & Pot Clavulanate (AMOXICILLIN/CLAVULANATE P) 1 Tab Tab 875 MG PO BIDM for 6 Days, #12 TAB 0 Refills Prov: Abdi Ma MD 02/15/16 Referrals Anthony Griffiths M.D.(JORJE) (PCP) Forms HOME CARE DOCUMENTATION FORM, IMPORTANT VISIT INFORMATION Patient Instructions A Signature Page, My [facility] Problem Qualifiers Primary Impression: Chest pain Chest pain type: unspecified Qualified Codes: R07.9 - Chest pain, unspecified
== END 2016-02-15 16:25 | disposition home or self-care (01) | DRG 247 ==
LOC: ENRESERVTM → ENRESERVDT → EDBD 07:56 → C.EDB 07:57 → C.2T 10:59 → OBSVTOIN 12:32 → INTOOBSV 12:32 → OBSVTOIN 02-14 12:32
PROVIDERS: ADMIT Internal Medicine; ATTEND Internal Medicine
PROC: 4A023N7 Measurement of Cardiac Sampling and Pressure, Left Heart, Percutaneous Approach (ICD-10-PCS; principal; 2016-02-13 14:17)
PROC: B2111ZZ Fluoroscopy of Multiple Coronary Arteries using Low Osmolar Contrast (ICD-10-PCS; principal; 2016-02-13 14:17)
PROC: 027035Z Dilation of Coronary Artery, One Artery with Two Drug-eluting Intraluminal Devices, Percutaneous Approach (ICD-10-PCS; principal; 2016-02-13 14:17)
DX: I21.4 Non-ST elevation (NSTEMI) myocardial infarction (principal); I25.10 Atherosclerotic heart disease of native coronary artery without angina pectoris; R00.0 Tachycardia, unspecified; R03.0 Elevated blood-pressure reading, without diagnosis of hypertension; T44.995A Adverse effect of other drug primarily affecting the autonomic nervous system, initial encounter; E78.5 Hyperlipidemia, unspecified; I51.9 Heart disease, unspecified; J32.9 Chronic sinusitis, unspecified; E11.9 Type 2 diabetes mellitus without complications; K21.9 Gastro-esophageal reflux disease without esophagitis; J44.9 Chronic obstructive pulmonary disease, unspecified; J45.909 Unspecified asthma, uncomplicated; M19.079 Primary osteoarthritis, unspecified ankle and foot; Z96.651 Presence of right artificial knee joint; Z87.891 Personal history of nicotine dependence; Z82.49 Family history of ischemic heart disease and other diseases of the circulatory system; Z79.02 Long term (current) use of antithrombotics/antiplatelets; Z79.1 Long term (current) use of non-steroidal anti-inflammatories (NSAID); Z79.51 Long term (current) use of inhaled steroids; Z79.82 Long term (current) use of aspirin; Z79.84 Long term (current) use of oral hypoglycemic drugs